=== PATIENT | male | born 1990 | race Caucasian/White ===

== ENCOUNTER 2025-07-01 09:20 | Inpatient (IN) | payer BC ==
[2025-07-01] VITALS (39 sets, daily range): BP systolic 88–117; BP diastolic 47–75; TEMP 98–98.5; O2SAT 92–99
[~2025-07-01] VITALS: Ht 190.5 cm; Wt 130.6 kg
[2025-07-01 10:04] LABS: PLATELET COUNT (AUTO) 192 K/uL (150-450); RED BLOOD CELL COUNT(AUTO) 4.44 MIL/uL (4.5-6.0); RED CELL DISTRIBUTION WIDTH 14.8 % (11.5-15.0); WHITE BLOOD COUNT (AUTO) 5.1 K/uL (4.3-11.0)
[2025-07-01 10:18] LABS: CALCIUM, SERUM 8.5 mg/dL (8.5-10.1); CREATININE 0.8 mg/dL (0.6-1.3); SODIUM SERUM 140 mmol/L (136-145); UREA NITROGEN, BLOOD 13 mg/dL (7-18)
[2025-07-01] MEDS: LEVETIRACETAM (500MG) 1,500 MG in IV NS 0.9% 85 ML IV ONE (10:21)
[2025-07-01 10:25] LABS: ALCOHOL, BLOOD < 3 mg/dL (0-10); ASPARTATE AMINOTRANSFERASE 16 U/L (15-37); TOTAL PROTEIN, SERUM 7.2 g/dL (6.4-8.2)
[2025-07-01 10:27] LABS: LACTIC ACID 1.9 mmol/L (0.4-2.0)
[2025-07-01] MEDS ORDERED: ATROPINE SULFATE 1 MG/10 ML DISP.SYRIN ONE (10:27)
[2025-07-01] MEDS: ATROPINE SULFATE 1 MG/10 ML DISP.SYRIN IV ONE (10:31)
[2025-07-01] MEDS ORDERED: ARIP10TA9 PO (10:42)
[2025-07-01] MEDS ORDERED: ESCI20TA PO (10:42)
[2025-07-01] MEDS ORDERED: LEVE500T9 PO (10:42)
[2025-07-01] MEDS ORDERED: BUPR1FIL SL (10:42)
[2025-07-01] MEDS ORDERED: ONDANSETRON HCL/PF 4 MG/2 ML VIAL IVP PRN (12:00)
[2025-07-01] MEDS ORDERED: MAGNESIUM HYDROXIDE 30 ML UDC PO PRN (12:00)
[2025-07-01] MEDS ORDERED: Z GUARD REMEDY 4 OZ OINT TP PRN (12:00)
[2025-07-01] MEDS ORDERED: ACETAMINOPHEN 325 MG TABLET PO PRN (12:00)
[2025-07-01] MEDS: IV NS 0.9% 1,000 ML IV PRN (13:16)
[2025-07-01] MEDS: NICOTINE PATCH (21MG) 21 MG PATCH.TD24 TD SCH (13:30)
[2025-07-02] VITALS (34 sets, daily range): BP systolic 49–127; BP diastolic 16–90; TEMP 98.3–98.8; O2SAT 92–98
[2025-07-02 05:03] LABS: PLATELET COUNT (AUTO) 166 K/uL (150-450); RED BLOOD CELL COUNT(AUTO) 4.27 MIL/uL (4.5-6.0); RED CELL DISTRIBUTION WIDTH 15.0 % (11.5-15.0); WHITE BLOOD COUNT (AUTO) 8.0 K/uL (4.3-11.0)
[2025-07-02 05:18] LABS: CALCIUM, SERUM 8.4 mg/dL (8.5-10.1); CREATININE 0.6 mg/dL (0.6-1.3); PHOSPHORUS 2.9 mg/dL (2.5-4.9); SODIUM SERUM 140.0 mmol/L (136-145); UREA NITROGEN, BLOOD 9.0 mg/dL (7-18)
[2025-07-02 05:28] LABS: LDL 108.0 mg/dL (0-99)
[2025-07-02] MEDS: PANTOPRAZOLE 40 MG TABLET.DR PO SCH (07:59)
== END 2025-07-02 09:20 | disposition left against medical advice (07) | DRG 310 ==
LOC: ER 09:25 → ICU 11:55
PROVIDERS: ADMIT Nurse Practitioner Family; ATTEND Internal Medicine
DX: R00.1 Bradycardia, unspecified (principal); G40.909 Epilepsy, unspecified, not intractable, without status epilepticus; F41.9 Anxiety disorder, unspecified; F31.9 Bipolar disorder, unspecified; F19.10 Other psychoactive substance abuse, uncomplicated; G47.33 Obstructive sleep apnea (adult) (pediatric); E66.9 Obesity, unspecified; Z68.36 Body mass index [BMI] 36.0-36.9, adult; F17.200 Nicotine dependence, unspecified, uncomplicated
CPT/HCPCS: 36415; 71045-TC; 80048-TC; 80061-TC; 80076-TC; 82962-TC; 83605-TC; 83735-TC; 84100-TC; 84484-TC; 85025-TC; 87081-TC; 93307-TC; 94799-TC; A4223; G0378; G0480; J0461; J1953; J7030

== ENCOUNTER 2025-07-02 11:08 | Emergency (ER) | payer BC ==
[~2025-07-02 11:08] MED LIST: ARIP10TA9 PO; BUPR1FIL SL; ESCI20TA PO; LEVE500T9 PO
== END 2025-07-02 11:34 | disposition left against medical advice (07) ==
LOC: ER 11:33
DX: Z00.00 Encounter for general adult medical examination without abnormal findings (principal); Z53.21 Procedure and treatment not carried out due to patient leaving prior to being seen by health care provider

== ENCOUNTER 2025-07-02 11:50 | Emergency (ER) | payer BC ==
[~2025-07-02] VITALS: Ht 190.5 cm; Wt 127.0 kg
[2025-07-02 12:10] VITALS: TEMP 98.3
[2025-07-02 12:20] VITALS: BP 126/79; O2SAT 98
== END 2025-07-02 14:13 | disposition left against medical advice (07) ==
LOC: ER 11:58
DX: Z00.00 Encounter for general adult medical examination without abnormal findings (principal); Z53.21 Procedure and treatment not carried out due to patient leaving prior to being seen by health care provider